=== PATIENT | female | born 1955 | race Caucasian/White ===

== ENCOUNTER 2021-07-31 09:01 | Emergency (ER) | payer OTHER ==
[~2021-07-31] VITALS: Ht 157.5 cm; Wt 68.2 kg
[2021-07-31] MEDS ORDERED: ESCI-8 PO (09:15)
[2021-07-31] MEDS ORDERED: LOSA25TA21 PO (09:15)
[2021-07-31] MEDS ORDERED: ATOR20TA86 PO (09:15)
[2021-07-31] MEDS ORDERED: DEXAMETHASONE 4 MG TABLET PO ONE (09:45)
[2021-07-31] MEDS ORDERED: DiphenhydrAMINE HCL 25 MG CAPSULE PO ONE (09:45)
[2021-07-31 10:33] VITALS: BP 137/70
== END 2021-07-31 10:39 | disposition home or self-care (01) ==
LOC: EMS 09:01
DX: L50.9 Urticaria, unspecified (principal); F32.9 Major depressive disorder, single episode, unspecified; I10 Essential (primary) hypertension; Z90.89 Acquired absence of other organs
CPT/HCPCS: 99283; J8540